=== PATIENT | male | born 1970 | race Asian ===

== ENCOUNTER 2017-04-21 10:38 | Emergency (ER) | payer OTHER ==
[2017-04-21 13:20] VITALS: BP 137/90
== END 2017-04-21 13:20 | disposition home or self-care (01) ==
LOC: ED 10:38
DX: S80.11XA Contusion of right lower leg, initial encounter (principal); W31.89XA Contact with other specified machinery, initial encounter; Y93.89 Activity, other specified; Y99.8 Other external cause status; Y92.89 Other specified places as the place of occurrence of the external cause
CPT/HCPCS: J1885